=== PATIENT | female | born 1950 | race African-American/Black ===

== ENCOUNTER 2023-12-25 15:26 | Emergency (ER) | payer MEDICARE, OTHER ==
[~2023-12-25] VITALS: Ht 167.6 cm; Wt 70.0 kg
[2023-12-25 15:31] VITALS: TEMP 98.6; O2SAT 96
[2023-12-25] MEDS ORDERED: MAGNESIUM/ALUMINUM HYDROXIDE/SIMETHICONE 30ML UDC PO ONE (16:00)
[2023-12-25] MEDS: MORPHINE SULFATE 4 MG/ML INJ (FOR IV/IM USE) IV NR (16:00)
[2023-12-25] MEDS: MAGNESIUM/ALUMINUM HYDROXIDE/SIMETHICONE 30ML UDC PO NR (16:00)
[2023-12-25 16:31] LABS: BASOPHILS % 0.2 % (0.0-2.0); EOSINOPHILS % 1.1 % (0.0-5.0); HEMATOCRIT. 33.7 % (36.0-48.0); HEMOGLOBIN. 11.4 g/dL (12.0-16.0); LYMPHOCYTES % 10.5 % (20.0-50.0); MEAN CORPUSCULAR HEMOGLOBIN 29.9 pg (28.0-32.0); MEAN PLATELET VOLUME 9.7 fl (7.4-10.4); MONOCYTES % 7.8 % (2.0-8.0); NEUTROPHILS % 80.4 % (40.0-76.0); PLATELET 173 x1000/uL (130-400); RED BLOOD CELL COUNT 3.82 mill/uL (4.2-5.4); RED CELL DISTRIBUTION WIDTH 15.6 % (11.6-14.6)
[2023-12-25 16:42] LABS: PROTHROMBIN TIME 10.9 sec (9.6-11.0)
[2023-12-25] MEDS: ALBUTEROL (0.083%) 2.5MG/3ML NEB HHN STA (16:45)
[2023-12-25 16:46] LABS: ALANINE AMINOTRANSFERASE 12 IU/L (10-49); ALBUMIN 4.1 g/dL (3.2-4.8); ASPARTATE AMINOTRANSFERASE 17 IU/L (<34); CALCIUM 7.5 mg/dL (8.7-10.4); CARBON DIOXIDE 25 mEq/L (21-32); CHLORIDE 104 mEq/L (98-107); CREATININE 0.9 mg/dL (0.6-1.0); GLUCOSE 101 mg/dL (70-105); POTASSIUM 3.5 mEq/L (3.5-5.1); PROTEIN TOTAL 6.8 g/dL (6.0-8.3); SODIUM 137 mEq/L (136-145); TROPONIN I HIGH SENSITIVITY 10 ng/L (3.0-34); UREA NITROGEN BLOOD 11 mg/dL (9-23)
[2023-12-25] MEDS: IPRATROPIUM BROMIDE (0.02%) 0.5MG/2.5ML NEB HHN STA (16:46)
[2023-12-25 16:48] VITALS: PULSE 72; RESP 18
[2023-12-25] MEDS: MAGNESIUM 2 G PREMIX 50 ML IV ONE (17:08)
[2023-12-25] MEDS: METHYLPREDNISOLONE SOD SUCC 125MG/2ML (ACT-O-VIAL) IV STA (17:08)
[2023-12-25] MEDS: MORPHINE SULFATE 4 MG/ML INJ (FOR IV/IM USE) IV ONE (17:08)
[2023-12-25] MEDS: PANTOPRAZOLE SODIUM 40 MG/VIAL IV ONE (17:08)
[2023-12-25] MEDS: ASPIRIN 325MG EC TABLET PO ONE (17:51)
[2023-12-25 19:27] LABS: TROPONIN I HIGH SENSITIVITY 8 ng/L (3.0-34)
[2023-12-25 21:35] VITALS: BP 143/81; PULSE 73; RESP 18
== END 2023-12-25 21:45 | disposition short-term general hospital (02) ==
LOC: ER 15:26
DX: J44.1 Chronic obstructive pulmonary disease with (acute) exacerbation (principal); R07.9 Chest pain, unspecified; E11.9 Type 2 diabetes mellitus without complications; I10 Essential (primary) hypertension; I25.2 Old myocardial infarction; Z88.6 Allergy status to analgesic agent; Z20.822 Contact with and (suspected) exposure to COVID-19
CPT/HCPCS: 99285; 96365; 71045; 96375; 87426; 80053; 83880; 85025; 85610; 84484; 87804 ×2; 36415; 94640; 93005; 96368; J3475; J2930; C9113; J2270